=== PATIENT | female | born 1990 | race Caucasian/White ===

== ENCOUNTER 2017-02-19 07:12 | Day surgery (SDC) | payer OTHER ==
[2017-02-18 11:32] VITALS: Ht 160 cm; Wt 75.0 kg
[~2017-02-19] VITALS: Ht 160 cm; Wt 75.0 kg
[2017-02-19] VITALS (13 sets, daily range): BP systolic 100–118; BP diastolic 54–72; PULSE 58–72; RESP 18–23
[~2017-02-19 07:12] MED LIST: GLYCOPYRROLATE 0.4 MG INJ ONE; NEOSTIGMINE 3 MG/3 ML SYRINGE ONE
[2017-02-19] MEDS ORDERED: SOD CHLORIDE 0.9% 1,000 ML IV SCH (08:00)
[2017-02-19] MEDS ORDERED: CEFAZOLIN 2 GM/50 ML (PMX) 50 ML IVPB ONE (08:00)
[2017-02-19] MEDS ORDERED: BUPIVACAINE 0.25% (MPF) 10 ML 10 ML VIAL ONE (11:20)
[2017-02-19] MEDS ORDERED: LIDOCAINE 2% (SDV) 5 ML INJ ONE (11:30)
[2017-02-19] MEDS ORDERED: ROCURONIUM 50 MG INJ ONE (11:30)
[2017-02-19] MEDS ORDERED: SUCCINYLCHOLINE CHLORIDE 100 MG/5 ML SYG IV ONE (11:30)
[2017-02-19] MEDS ORDERED: FENTAnyl 50 MCG/ML VIAL ONE (11:31)
[2017-02-19] MEDS ORDERED: MIDAZOLAM 1 MG/ML 2 ML INJ ONE (11:31)
[2017-02-19] MEDS ORDERED: PROPOFOL 20 ML ONE (11:31)
[2017-02-19] MEDS ORDERED: CEFAZOLIN 1 GM INJ ONE (11:43)
[2017-02-19] MEDS ORDERED: DEXAMETHASONE 4 MG/ML 1 ML INJ ONE (11:43)
[2017-02-19] MEDS ORDERED: FAMOTIDINE 20 MG INJ ONE (11:43)
[2017-02-19] MEDS ORDERED: ONDANSETRON 4 MG INJ ONE ×2 (11:43→12:27)
[2017-02-19] MEDS ORDERED: HYDROmorphONE 2 MG/ML SYG ONE (12:04)
--- NOTE | 2017-02-19 12:16 | OPR ---
Date/Time of Note Date/Time of Note DATE: 02/19/17 TIME: 12:12 Operative Report Procedure Date: Feb 19, 2017 Preoperative Diagnosis symptomatic gallstones Postoperative Diagnosis same Operation/Procedure Performed 1. laparoscopic cholecystectomy 2. therapeutic injection of subcutaneous local anesthesia Surgeon see signature line Network And [employer] Support Specialist none Anesthesia Type: general Estimated Blood Loss: 0 - 10 ml's Transfusion none Specimen gallbladder Grafts/Implants none Complications none Pt Condition Post Procedure: stable Indications This is a 26-year-old female with symptomatic gallstones. She requests surgical excision. Risks alternatives benefits and percent were discussed with the patient. Patient expresses understanding and consents to the operation. Procedure Description Patient taken to the OR and prepped and draped in usual sterile fashion. Surgical timeout was performed. IV antibiotics were given. Infraumbilical incision is made transversely with a 15 blade. Dissection cautery was carried down to the fascia. The fascia was grasped with Upper Tract's and divided with curved Arriaga scissors. 0 Vicryl U stitch was placed into the fascia. Blueness on trocar is introduced pneumoperitoneum established. Midepigastric 12 mm optical trocar was placed under direct visualization. Right upper quadrant upper flank 5 mm optical trocar was placed under direct visualization. Upon initial inspection there are some adhesions to the gallbladder which were taken down bluntly. The gallbladder was grasped by the fundus and retracted in the lateral and our direction. This allowed mobilization and dissection of the lateral aspect cautery. This further allowed careful dissection of the cystic duct. The cystic duct was isolated the critical view is established. Cystic duct was divided with 3 clips proximal and clip distal. The cystic artery was divided with 3 clips proximal and clip distal. The gallbladder is taken off the gallbladder bed. There is good hemostasis. The gallbladder was retrieved using Endo Catch bag. Ports removed under direct visualization. 0 Vicryl U stitch was tied down. Skin was closed using skin jamal. Therapeutic subcutaneous injection of local anesthesia was injected throughout all port sites. Dressings were applied. Shannan RO Feb 19, 2017 12:16
[2017-02-19] MEDS ORDERED: MEPERIDINE 25 MG INJ ONE (12:27)
[2017-02-19] MEDS ORDERED: KETOROLAC 30 MG INJ IV PRN (12:30)
[2017-02-19] MEDS ORDERED: ONDANSETRON 4 MG INJ IV PRN (12:30)
[2017-02-19] MEDS ORDERED: MEPERIDINE 25 MG INJ IV PRN (12:30)
[2017-02-19] MEDS ORDERED: OXYCODONE/ACETAMINOPHEN (5/325) TAB PO PRN ×2 (12:30)
[2017-02-19] MEDS ORDERED: HYDROCODONE/APAP (5/325) TAB PO ONE (12:30)
[2017-02-19] MEDS ORDERED: HYDROmorphONE (0.2 MG/ML) 10ML SYG IV PRN ×2 (12:30)
[2017-02-19] MEDS ORDERED: DIPHENHYDRAMINE 50 MG INJ IV PRN (12:30)
[2017-02-19] MEDS ORDERED: PROCHLORPERAZINE 10 MG INJ IV PRN (12:30)
[2017-02-19] MEDS ORDERED: FENTAnyl 50 MCG/ML VIAL IV PRN ×3 (12:30)
[2017-02-19] MEDS: HYDROmorphONE (0.2 MG/ML) 10ML SYG IV PRN ×3 (12:32→12:56)
== END 2017-02-19 14:05 | disposition home or self-care (01) ==
LOC: SDS 07:12
PROVIDERS: ATTEND Surgery
DX: K80.10 Calculus of gallbladder with chronic cholecystitis without obstruction (principal)
CPT/HCPCS: 47562; 84703; 88304; J0690; J1100; J1170; J1885; J2175; J2250; J2405; J2710; J3010; Z7512; Z7610

== ENCOUNTER 2017-02-20 00:10 | Emergency (ER) | payer OTHER ==
[~2017-02-20] VITALS: Ht 160 cm; Wt 75.0 kg
[2017-02-20 00:10] VITALS: Ht 160 cm; Wt 75.0 kg
[2017-02-20 01:35] VITALS: TEMP 98.7
--- NOTE | 2017-02-20 01:36 | ERA ---
ER Documentation Chief Complaint Date/Time DATE: 02/20/17 TIME: 01:35 Chief Complaint Pt reports umbilical surgical incision opened today, sx was this morning HPI The patient is a 36-year-old female, presenting to the ER because of bleeding from the umbilical puncture wound from laparoscopic cholecystectomy today. She denies weakness, syncope, near syncope, neck pain, chest pain, abdominal pain, vomiting. She does not smoke or drink Past medical history: None ROS All systems reviewed and are negative except as per history of present illness. Medications Home Meds No Active Prescriptions or Reported Meds Allergies Allergies: Coded Allergies: No Known Allergy (Unverified , 02/19/17) PMhx/Soc History of Surgery: No Anesthesia Reaction: No Hx Neurological Disorder: No Hx Respiratory Disorders: No Hx Cardiac Disorders: No Hx Psychiatric Problems: No Hx Miscellaneous Medical Probl: No Hx Alcohol Use: No Hx Substance Use: No Hx Tobacco Use: No Physical Exam Vitals Vital Signs Date Time Temp Pulse Resp B/P Pulse Ox O2 Delivery O2 Flow Rate FiO2 02/20/17 03:37 57 16 103/69 100 02/20/17 01:35 98.7 55 18 107/82 100 02/20/17 00:10 99.0 74 18 126/77 100 Physical Exam Const: No acute distress. Head: Atraumatic. Eyes: Normal Conjunctiva. ENT: Normal External Ears, Nose and Mouth. Neck: Full range of motion. No meningismus. Resp: Clear to auscultation bilaterally. Cardio: Regular rate and rhythm. Abd: Soft, non distended, normal bowel sounds, non tender. Minimal bleeding from the puncture wound at the umbilicus area Skin: No petechiae or rashes. Back: No midline or flank tenderness. Ext: No cyanosis, or edema. Neur: Awake and alert. No focal deficit Psych: Normal Mood and Affect. Result Diagram: 02/20/17 0325 Results 24 hrs Laboratory Tests Test 02/20/17 03:25 White Blood Count 12.210^3/ul Red Blood Count 4.5510^6/ul Hemoglobin 13.5g/dl Hematocrit 39.9% Mean Corpuscular Volume 87.7fl Mean Corpuscular Hemoglobin 29.7pg Mean Corpuscular Hemoglobin Concent 33.8g/dl Red Cell Distribution Width 13.2% Platelet Count 61368^3/UL Mean Platelet Volume 12.5fl Neutrophils % 77.9% Lymphocytes % 13.2% Monocytes % 8.4% Eosinophils % 0.1% Basophils % 0.2% Nucleated Red Blood Cells % 0.0/100WBC Neutrophils # 9.510^3/ul Lymphocytes # 1.610^3/ul Monocytes # 1.010^3/ul Eosinophils # 0.010^3/ul Basophils # 0.010^3/ul Nucleated Red Blood Cells # 0.010^3/ul Current Medications Medications (Trade) Dose Ordered Sig/Isabella Route PRN Reason Start Time Stop Time Status Last Admin Dose Admin Ondansetron HCl (Zofran Inj) 4 mg STK-MED ONCE .ROUTE 02/20/17 03:50 02/20/17 03:51 DC Morphine Sulfate (morphine) 2 mg STK-MED ONCE .ROUTE 02/20/17 03:50 02/20/17 03:51 DC Ondansetron HCl (Zofran Inj) 4 mg ONCE ONCE IV 02/20/17 04:02 02/20/17 04:03 DC 02/20/17 04:03 Morphine Sulfate (morphine) 2 mg ONCE ONCE IV 02/20/17 04:02 02/20/17 04:03 DC 02/20/17 04:04 Procedures/MDM MEDICAL MAKING DECISION: The patient is a 26-year-old female, presenting with acute postop bleeding. The dressing was clean and dressed with Surgicel and is stable for follow-up with her surgeon in the morning Departure Diagnosis: Primary Impression: Post-op bleeding Condition: Good Comments I discussed the findings with the patient. I advised the patient to follow-up with her general surgeon Dr Mancera in the morning SUMMER LIRA MD Feb 20, 2017 01:36 SUMMER LIRA MD Feb 20, 2017 01:36
[2017-02-20 03:37] VITALS: BP 103/69; PULSE 57; RESP 16
[2017-02-20] MEDS ORDERED: ONDANSETRON 4 MG INJ ONE (03:50)
[2017-02-20] MEDS ORDERED: morphine 2 MG INJ ONE (03:50)
[2017-02-20 04:01] LABS: BASOPHILS % 0.2 % (0.0-2.0); EOSINOPHILS % 0.1 % (0.0-7.0); HEMATOCRIT 39.9 % (37.0-47.0); HEMOGLOBIN 13.5 g/dl (12.0-16.0); LYMPHOCYTES # 1.6 10^3/ul (0.8-2.9); LYMPHOCYTES % 13.2 % (15.0-51.0); MEAN CORPUSCULAR HEMOGLOBIN 29.7 pg (29.0-33.0); MEAN CORPUSCULAR HGB CONC 33.8 g/dl (32.0-37.0); MEAN CORPUSCULAR VOLUME 87.7 fl (82.0-101.0); MEAN PLATELET VOLUME 12.5 fl (7.4-10.4); MONOCYTES % 8.4 % (0.0-11.0); NEUTROPHIL # 9.5 10^3/ul (1.6-7.5); NEUTROPHILS % 77.9 % (39.0-77.0); PLATELET COUNT 197 10^3/UL (140-415); RED BLOOD COUNT 4.55 10^6/ul (4.20-5.40); RED CELL DISTRIBUTION WIDTH 13.2 % (11.5-14.5); WHITE BLOOD COUNT 12.2 10^3/ul (4.8-10.8)
[2017-02-20] MEDS ORDERED: morphine 2 MG INJ IV ONE ×2 (04:02→04:30)
[2017-02-20] MEDS ORDERED: ONDANSETRON 4 MG INJ IV ONE (04:02)
[2017-02-20 04:06] LABS: CALCIUM 8.8 mg/dl (8.4-10.2); CREATININE 0.72 mg/dl (0.44-1.00)
[2017-02-20] MEDS ORDERED: ONDANSETRON 4 MG INJ IV STA (04:28)
== END 2017-02-20 05:04 | disposition home or self-care (01) ==
LOC: E/R 00:10
DX: K91.840 Postprocedural hemorrhage of a digestive system organ or structure following a digestive system procedure (principal); R40.2142 Coma scale, eyes open, spontaneous, at arrival to emergency department; R40.2252 Coma scale, best verbal response, oriented, at arrival to emergency department; R40.2362 Coma scale, best motor response, obeys commands, at arrival to emergency department
CPT/HCPCS: 80048; 85025; 96374; 96375; J2270; J2405; Z7502